=== PATIENT | female | born 1945 | race Caucasian/White ===

== ENCOUNTER 2021-03-11 16:40 | Emergency (ER) | payer OTHER ==
[2021-03-11] MEDS ORDERED: MEDROL 4MG DOSEP4 MG PO (18:17)
== END 2021-03-11 18:39 | disposition home or self-care (01) ==
LOC: FER 16:40
DX: S76.011A Strain of muscle, fascia and tendon of right hip, initial encounter (principal); S76.911A Strain of unspecified muscles, fascia and tendons at thigh level, right thigh, initial encounter; I10 Essential (primary) hypertension; W19.XXXA Unspecified fall, initial encounter; Y92.410 Unspecified street and highway as the place of occurrence of the external cause
CPT/HCPCS: 73502; 73552; J1100; J2270